=== PATIENT | male | born 1950 | race Two or more races ===

== ENCOUNTER 2022-12-07 10:28 | Emergency (ER) | payer OTHER ==
[~2022-12-07] VITALS: Ht 180.3 cm; Wt 113.4 kg
[~2022-12-07 10:28] MED LIST: DIOVAN HCT 160-1 TAB; NORVASC2.5 MG; PAXIL20 MG; PROVENTIL0.5 ML/2.5; SYNTHROID50 MCG; WELLBUTRIN75 MG
== END 2022-12-07 13:21 ==
LOC: ER 10:28
DX: S82.64XA Nondisplaced fracture of lateral malleolus of right fibula, initial encounter for closed fracture (principal); W18.39XA Other fall on same level, initial encounter; Y93.9 Activity, unspecified; Y92.018 Other place in single-family (private) house as the place of occurrence of the external cause; Y99.9 Unspecified external cause status; M79.671 Pain in right foot; Z91.013 Allergy to seafood